=== PATIENT | female | born 1945 | race Caucasian/White ===

== ENCOUNTER 2025-04-02 08:19 | Outpatient (CLI) | payer MEDICARE ==
[2025-04-02 08:49] LABS: #Basophils 0.1 thou/uL (0.0-0.2); #Eosinophils 0.6 thou/uL (0.0-0.7); #Lymphocytes 1.0 thou/uL (1.20-3.40); #Monocytes 0.7 thou/uL (0.11-0.59); #Neutrophils 5.0 thou/uL (1.40-6.50); %Basophils 1.2 % (0.0-1.0); %Eosinophils 8.5 % (0.0-10.0); %Lymphocytes 14.0 % (21.0-51.0); %Monocytes 9.2 % (0.0-10.0); %Neutrophils 67.2 % (42.0-75.0); Hematocrit 44.5 % (36.0-47.0); Hemoglobin 13.8 g/dL (12.0-16.0); Mean Corpuscular Hemoglobin 28.6 pg (27.0-31.0); Mean Corpuscular Volume 92.0 fl (78.0-98.0); Platelet Count 635 10x3/uL (130-400); Red Blood Cell (RBC) Count 4.83 mill/uL (4.20-5.40); White Blood Cell (WBC) Count 7.4 10x3/uL (4.8-10.8)
[2025-04-02 08:57] LABS: ALT (SGPT) 9 U/L (Less than 34); AST (SGOT) 28 U/L (11-34); Albumin 4.0 g/dL (3.1-4.5); Alkaline Phosphatase 64 U/L (40-110); Anion Gap 15 mmol/L (10-20); BUN (Urea Nitrogen) 30 mg/dL (9.8-20.1); Bilirubin, Direct 0.1 mg/dL (0.1-0.3); Bilirubin, Total 0.4 mg/dL (0.3-1.2); Calc. Creatinine Clearance 0 mL/min (70-130); Calcium 9.4 mg/dL (7.8-10.44); Carbon Dioxide 24 mmol/L (23-31); Cardiac Risk 4.4 (Less than 4.5); Chloride 107 mmol/L (98-107); Cholesterol 225 mg/dl (< 200 Desired); Glucose 109 mg/dL (83-110); HDL Cholesterol 51 mg/dL (>60 Neg Risk); LDL Cholesterol, Calculated 149 mg/dL; Potassium 3.7 mmol/L (3.5-5.1); Sodium 142 mmol/L (136-145); Triglycerides 124 mg/dL (Less than 150)
[2025-04-02 16:50] LABS: Iron 111 ug/dL (50-170); Iron Binding Capacity, Total 305 mcg/dL (265-497)
[2025-04-02 16:52] LABS: Vitamin D, 25 Hydroxy 42.1 ng/ml (> 30.0)
[2025-04-02 17:49] LABS: Ferritin 65.43 ng/mL (10-291); Free T4 (Free Thyroxine) 1.35 ng/dL (0.70-1.48); Vitamin B12 271.0 pg/mL (211-911)
== END 2025-04-02 08:20 | disposition home or self-care (01) ==
LOC: MADLAB 08:19
PROVIDERS: ATTEND Internal Medicine
DX: E78.019 Familial hypercholesterolemia, unspecified (principal); E11.9 Type 2 diabetes mellitus without complications; E03.9 Hypothyroidism, unspecified; E55.9 Vitamin D deficiency, unspecified; D51.9 Vitamin B12 deficiency anemia, unspecified; I10 Essential (primary) hypertension; Z79.899 Other long term (current) drug therapy
CPT/HCPCS: 36415; 80048; 80061; 80076; 82306; 82607; 82728; 82746; 83036; 83540; 83550; 84439; 84443; 85025